=== PATIENT | female | born 1975 | race African-American/Black ===

== ENCOUNTER 2024-07-25 04:01 | Day surgery (SDC) | payer OTHER ==
[2024-07-21 17:17] VITALS: BMI 29.9
[2024-07-25] MEDS ORDERED: ACETAMINOPHEN 500 MG TABLET (FP) PO PRN (13:22)
[2024-07-25] MEDS: LIDOCAINE HCL 1% PRESERVATIVE FREE - 30ML VIAL IJ ONE ×2 (16:35)
[2024-07-25] MEDS: IOHEXOL 180 MG/1 ML ML IJ ONE ×2 (16:38)
[2024-07-25] MEDS: DEXAMETHASONE SOD PHOSPHATE 10 MG/1 ML VIAL IM ONE ×2 (16:38)
[2024-07-25 17:26] VITALS: BP 125/79; PULSE 84; RESP 20; TEMP 97.7
== END 2024-07-25 17:23 | disposition home or self-care (01) ==
LOC: JASU-SURG 04:01
PROVIDERS: ATTEND Pain Medicine Pain Medicine
PROC: 3E0R33Z Introduction of Anti-inflammatory into Spinal Canal, Percutaneous Approach (ICD-10-PCS; principal; 2024-07-25 15:45)
DX: M54.12 Radiculopathy, cervical region (principal)
CPT/HCPCS: 76000-TC-FY; 81025; J1100